=== PATIENT | female | born 1965 | race Caucasian/White ===

== ENCOUNTER 2017-11-15 13:48 | Emergency (ER) | payer MEDICAID ==
[2017-11-15 14:25] VITALS: BMI 33.3
[2017-11-15] MEDS ORDERED: Sodium Chloride 0.9% 1,000 ML IV STA (14:27)
[2017-11-15 14:47] VITALS: O2SAT 98
[2017-11-15 14:58] LABS: BASO # 0.01 K/mm3 (0.0-2.0); BASO % 0.1 % (0.0-3.0); EOS % 0.3 % (1.5-5.0); GRAN # 9.69 (1.4-6.5); GRAN % 81.5 % (50.0-68.0); HEMOGLOBIN 13.8 g/dL (12.0-16.0); LYMPH # 1.8 (1.2-3.4); LYMPH % 14.8 % (22.0-35.0); MEAN CELL VOLUME 83.7 fl (80.0-105.0); MEAN CORPUSCULAR HEMOGLOBIN 28.5 pg (25.0-35.0); MEAN CORPUSCULAR HGB CONC 34.1 g/dl (31.0-37.0); MEAN PLATELET VOLUME 9.5 fl (7.0-11.0); MONO # 0.4 (0.1-0.6); MONO % 3.3 % (1.0-6.0); RBC 4.84 10^6/uL (3.5-6.1); RED CELL DISTRIBUTION WIDTH 14.6 % (11.5-14.5); WHITE BLOOD COUNT 11.9 10^3/ul (4.5-11.0)
[2017-11-15 15:11] LABS: ALB/GLOB RATIO 1.3 (1.1-1.8); ALBUMIN 3.7 g/dL (3.0-4.8); ALT/SGPT 35 U/L (7-56); AMYLASE 56 U/L (35-125); AST/SGOT 30 U/L (14-36); BLOOD UREA NITROGEN 7 mg/dL (7-21); CALCIUM 9.1 mg/dL (8.4-10.5); GFR AFRICAN-AMERICAN > 60; GFR NON-AFRICAN AMERICAN > 60; LIPASE 90 U/L (23-300)
[2017-11-15 15:14] LABS: INR 1.01 (0.93-1.08); PROTHROMBIN TIME 11.5 SECONDS (9.4-12.5)
[2017-11-15 15:21] LABS: TROPONIN I < 0.01 ng/mL
[2017-11-15 16:03] VITALS: PULSE 74; RESP 18
[2017-11-15 16:35] LABS: URINE BILIRUBIN NEGATIVE (NEGATIVE); URINE BLOOD NEGATIVE (NEGATIVE); URINE GLUCOSE (UA) NEGATIVE (NEGATIVE); URINE LEUKOCYTE ESTERASE NEGATIVE Leu/uL (NEGATIVE); URINE PROTEIN TRACE mg/dL (<30 mg/dL); URINE UROBILINOGEN 0.2 E.U./dL (<1 E.U./dL)
[2017-11-15 16:39] LABS: URINE APPEARANCE CLEAR (CLEAR); URINE COLOR YELLOW (YELLOW)
--- NOTE | 2017-11-15 17:01 | US ---
HISTORY: epigastric pain COMPARISON: None. TECHNIQUE: Sonographic evaluation of the abdomen. FINDINGS: LIVER: Measures 17 cm. Diffuse increased echogenicity of the liver parenchyma. No mass. No intrahepatic bile duct dilatation. GALLBLADDER: Unremarkable. No gallstones. COMMON BILE DUCT: Measures 5 mm. No stones. No dilatation. PANCREAS: Unremarkable as visualized. No mass. No ductal dilatation. RIGHT KIDNEY: Measures 11.7 x 4.7 x 6.4cm. Normal echogenicity. No calculus, mass, or hydronephrosis. LEFT KIDNEY: Measures 11.5 x 5.6 x 6.1cm. Normal echogenicity. No calculus, mass, or hydronephrosis. SPLEEN: Normal in size and contour. No mass. AORTA: No aneurysmal dilatation. IVC: Unremarkable. OTHER FINDINGS: There is some ascitic fluid around the liver margin. IMPRESSION: Hepatomegaly with diffuse increased echogenicity compatible with fatty infiltration or other hepatic cellular disease pathology. No focal hepatic masses. No dilated ducts. Ascites present No gallbladder or pancreatic pathology seen
[2017-11-15 17:08] LABS: URINE BACTERIA FEW (NEG); URINE RBC NEGATIVE /hpf (0-2)
--- NOTE | 2017-11-15 17:14 | ED PDOC ---
Arrival/HPI - General Chief Complaint: Abdominal Pain Time Seen by Provider: 11/15/17 14:25 Historian: Patient - History of Present Illness Narrative History of Present Illness (Text): 11/15/17 17:25 52yo female with past medical history of hypertension who was bib EMS for 3days history of sharp worsening epigastric pain with associated nausea, vomiting and diarrhea. the son by the bedside states pain became worse today. She denies melena, hematemesis, hematochezia, fever, chills, urinary symptoms, chest pain, shortness of breath, sick contact, any other complaint. Past Medical History - Provider Review Nursing Documentation Reviewed: Yes - Travel History If Yes, travel location?: [place] - Infectious Disease Hx of Infectious Diseases: None - Cardiac Hx Hypertension: Yes (Noncompliant) - Pulmonary Hx Respiratory Disorders: No - Neurological Hx Neurological Disorder: No - HEENT Hx HEENT Disorder: No - Renal Hx Renal Disorder: No - Endocrine/Metabolic Hx Endocrine Disorders: No - Hematological/Oncological Hx Blood Disorders: No - Integumentary Hx Dermatological Disorder: No - Musculoskeletal/Rheumatological Hx Musculoskeletal Disorders: No - Gastrointestinal Hx Gastrointestinal Disorders: No - Genitourinary/Gynecological Hx Genitourinary Disorders: No - Psychiatric Hx Psychophysiologic Disorder: No Hx Substance Use: No - Anesthesia Hx Anesthesia: No Hx Anesthesia Reactions: No Hx Malignant Hyperthermia: No Family/Social History - Physician Review Nursing Documentation Reviewed: Yes Family/Social History: Unknown Family HX Smoking Status: Never Smoked Hx Alcohol Use: No Hx Substance Use: No Allergies/Home Meds Allergies/Adverse Reactions: Allergies No Known Allergies Allergy (Verified 06/15/15 19:43) Home Medications: Home Meds Medication Instructions Recorded Confirmed Ramipril [Altace] 10 mg PO DAILY 11/15/17 11/15/17 amLODIPine [Norvasc] 5 mg PO DAILY 11/15/17 11/15/17 Review of Systems - Physician Review All systems were reviewed & negative as marked: Yes - Review of Systems Constitutional: Normal Eyes: Normal ENT: Normal Respiratory: Normal Cardiovascular: Normal Gastrointestinal: Abdominal Pain, Diarrhea, Nausea, Vomiting. absent: Constipation, Hematochezia, Hematemesis Genitourinary Female: Normal Musculoskeletal: Normal Skin: Normal Neurological: Normal Endocrine: Normal Hemo/Lymphatic: Normal Psychiatric: Normal Physical Exam Vital Signs Reviewed: Yes Vital Signs Temp Pulse Resp BP Pulse Ox 11/15/17 17:49 98.9 F 74 18 142/72 98 11/15/17 16:00 74 18 138/65 98 11/15/17 14:46 99.4 F 79 17 142/67 98 Temperature: Afebrile Blood Pressure: Normal Pulse: Regular Respiratory Rate: Normal Appearance: Positive for: Well-Appearing, Non-Toxic, Comfortable Pain Distress: None Mental Status: Positive for: Alert and Oriented X 3 - Systems Exam Head: Present: Atraumatic, Normocephalic Pupils: Present: PERRL Extroacular Muscles: Present: EOMI Conjunctiva: Present: Normal Mouth: Present: Moist Mucous Membranes Neck: Present: Normal Range of Motion Respiratory/Chest: Present: Clear to Auscultation, Good Air Exchange. No: Respiratory Distress, Accessory Muscle Use Cardiovascular: Present: Regular Rate and Rhythm, Normal S1, S2. No: Murmurs Abdomen: Present: Tenderness (Epigastric tenderness), Normal Bowel Sounds, Other (Soft). No: Distention, Peritoneal Signs, Rebound, Guarding, McBurney's Point Tender, Rovsing's Sign Present Back: Present: Normal Inspection Upper Extremity: Present: Normal Inspection. No: Cyanosis, Edema Lower Extremity: Present: Normal Inspection. No: Edema Neurological: Present: GCS=15, CN II-XII Intact, Speech Normal Skin: Present: Warm, Dry, Normal Color. No: Rashes Psychiatric: Present: Alert, Oriented x 3, Normal Insight, Normal Concentration Medical Decision Making ED Course and Treatment: 11/16/17 01:04 PT presented for stated history. Her pain improved in Emergency department . Her lab was nonspecific. EKG NSR @76 Abdominal US IMPRESSION: Hepatomegaly with diffuse increased echogenicity compatible with fatty infiltration or other hepatic cellular disease pathology. No focal hepatic masses. No dilated ducts. Ascites present No gallbladder or pancreatic pathology seen Result was DW the pt. she was DC home with a rx of pepcid and Zofran. Referred to her PMD/GI - Lab Interpretations Lab Results: 11/15/17 14:45 11/15/17 14:45 Lab Results 11/15/17 16:15: Urine Color Yellow, Urine Appearance Clear, Urine pH 6.0, Ur Specific [place] 1.015, Urine Protein Trace H, Urine Glucose (UA) Negative, Urine Ketones Negative, Urine Blood Negative, Urine Nitrate Negative, Urine Bilirubin Negative, Urine Urobilinogen 0.2, Ur Leukocyte Esterase Negative, Urine RBC Negative, Urine WBC 2 - 5, Ur Epithelial Cells 1 - 3, Urine Bacteria Few 11/15/17 14:45: Sodium 139, Potassium 4.0, Chloride 106, Carbon Dioxide 22, Anion Gap 16, BUN 7, Creatinine 0.5 L, Est GFR ( Amer) > 60, Est GFR (Non -Af Amer) > 60, Random Glucose 142 H, Calcium 9.1, Total Bilirubin 0.3, AST 30, ALT 35, Alkaline Phosphatase 65, Lactate Dehydrogenase 527, Total Creatine Kinase 42, Troponin I < 0.01, Total Protein 6.6, Albumin 3.7, Globulin 2.9, Albumin/Globulin Ratio 1.3, Amylase 56, Lipase 90 11/15/17 14:45: PT 11.5, INR 1.01, APTT 22.0 L 11/15/17 14:45: WBC 11.9 H, RBC 4.84, Hgb 13.8, Hct 40.5, MCV 83.7, MCH 28.5, MCHC 34.1, RDW 14.6 H, Plt Count 387, MPV 9.5, Gran % 81.5 H, Lymph % (Auto) 14.8 L, Love % (Auto) 3.3, Eos % (Auto) 0.3 L, Baso % (Auto) 0.1, Gran # 9.69 H , Lymph # (Auto) 1.8, Love # (Auto) 0.4, Eos # (Auto) 0.0, Baso # (Auto) 0.01 - RAD Interpretation Radiology Orders: 11/15/17 16:14 ABDOMEN COMPLETE [US] Stat - Medication Orders Current Medication Orders: Discontinued Medications Famotidine (Pepcid) 20 mg IVP STAT STA Stop: 11/15/17 14:26 Last Admin: 11/15/17 14:58 Dose: 20 mg IVP Administration Document 11/15/17 14:58 HI (Rec: 11/15/17 14:58 [id number]) Charges for Administration # of IVP Administrations 1 Sodium Chloride (Sodium Chloride 0.9%) 1,000 mls @ 999 mls/hr IV .Q1H1M STA Stop: 11/15/17 15:27 Last Admin: 11/15/17 14:58 Dose: 999 mls/hr eMAR Start Stop Document 11/15/17 14:58 HI (Rec: 11/15/17 14:58 [place] [id number]) Intravenous Solution Start Date 11/15/17 Start Time 14:58 Ketorolac Tromethamine (Toradol) 30 mg IVP STAT STA Stop: 11/15/17 14:26 Last Admin: 11/15/17 14:58 Dose: 30 mg MAR Pain Assessment Document 11/15/17 14:58 HI (Rec: 11/15/17 14:58 [place] [id number]) Pain Reassessment Is this a pain reassessment? No Sleep Is patient sleeping during reassessment? No Presence of Pain Presence of Pain Yes IVP Administration Document 11/15/17 14:58 HI (Rec: 11/15/17 14:58 [place] [id number]) Charges for Administration # of IVP Administrations 1 Ondansetron HCl (Zofran Inj) 4 mg IVP STAT STA Stop: 11/15/17 14:26 Last Admin: 11/15/17 14:58 Dose: 4 mg IVP Administration Document 11/15/17 14:58 HI (Rec: 11/15/17 14:58 [place] [id number]) Charges for Administration # of IVP Administrations 1 Disposition/Present on Arrival - Present on Arrival Any Indicators Present on Arrival: No History of DVT/PE: No History of Uncontrolled Diabetes: No Urinary Catheter: No History of Decub. Ulcer: No History Surgical Site Infection Following: None - Disposition Have Diagnosis and Disposition been Completed?: Yes Diagnosis: Abdominal pain Disposition: HOME/ ROUTINE Disposition Time: 17:35 Patient Plan: Discharge Condition: STABLE Discharge Instructions (ExitCare): Acute Abdomen (Belly Pain), Adult (DC), Nausea and Vomiting, Adult (DC) Additional Instructions: Follow BRAT(Banana, plain rice, apple sauce, tea) diet for 24hours Follow up with your doctor/Market Investigator Return to Emergency department for any new or worsening symptoms Referrals: Tammie Eddy MD [Primary Care Provider] - Follow up with primary Jaya Gray MD [Staff Provider] - Follow up with primary Forms: [employer] ([place])
[2017-11-15 18:00] VITALS: BP 142/72; TEMP 98.9
--- NOTE | 2017-11-15 21:43 | CARD ---
APPROVED REPORT EKG Measurement Heart [id number] <Conclusion> Normal sinus rhythm Normal ECG
== END 2017-11-15 17:49 | disposition home or self-care (01) ==
LOC: ED 13:48
DX: R10.9 Unspecified abdominal pain (principal); I10 Essential (primary) hypertension; Z91.19 Patient's noncompliance with other medical treatment and regimen
CPT/HCPCS: 76700; 80053; 81001; 82150; 82550; 83615; 83690; 84484; 85025; 85610; 85730; 93005; 96374; 96375; 99284; J1885; J2405; J7030

== ENCOUNTER 2018-06-07 10:29 | Outpatient (CLI) | payer MEDICAID | END 2018-06-07 10:30 | disposition home or self-care (01) | LOC: RAD 10:30 ==

== ENCOUNTER 2018-06-18 10:17 | Outpatient (CLI) | payer MEDICAID | END 2018-06-18 10:18 | disposition home or self-care (01) | LOC: RAD 10:18 ==

== ENCOUNTER 2018-07-17 10:18 | Emergency (ER) | payer MEDICAID ==
[2018-07-17] MEDS ORDERED: Oxycodone/Acetaminophen 5/325 mg Tab PO STA (10:23)
[2018-07-17] MEDS ORDERED: Etomidate 20 mg/10ml Inj IV ONE (11:22)
--- NOTE | 2018-07-17 11:31 | RAD ---
Date of service: 07/17/2018 PROCEDURE: Radiographs of the Right Shoulder HISTORY: shoulder pain s/p trauma COMPARISON: No prior. FINDINGS: BONES: No acute fracture. JOINTS: Anterior glenohumeral dislocation. Humeral head situated anterior, medial and inferior to the glenoid. SOFT TISSUES: Normal. OTHER FINDINGS: None. IMPRESSION: Anterior glenohumeral dislocation. No definite fracture.
[2018-07-17 11:58] VITALS: RESP 20
--- NOTE | 2018-07-17 12:07 | ED PDOC ---
Arrival/HPI - General Chief Complaint: Upper Extremity Problem/Injury Time Seen by Provider: 07/17/18 10:19 Historian: Patient - History of Present Illness Narrative History of Present Illness (Text): 07/17/18 12:03 52yo female with pmhx of hypertension who was bib EMS for complaint of right shoulder/arm pain s/p trauma minutes [employer]. Patient states she fell while reaching for an object and landed on her right shoulder. Refused arm sling secondary to pain with movement. Denies hitting her head anywhere. Denies LOC, focal weakness, nausea, weakness, dizziness, any other complaint. Past Medical History - Provider Review Nursing Documentation Reviewed: Yes - Infectious Disease Hx of Infectious Diseases: None - Reproductive Menopause: No Currently : No - Cardiac Hx Hypertension: Yes (Noncompliant) - Pulmonary Hx Respiratory Disorders: No - Neurological Hx Neurological Disorder: No - HEENT Hx HEENT Disorder: No - Renal Hx Renal Disorder: No - Endocrine/Metabolic Hx Endocrine Disorders: No - Hematological/Oncological Hx Blood Disorders: No - Integumentary Hx Dermatological Disorder: No - Musculoskeletal/Rheumatological Hx Musculoskeletal Disorders: No - Gastrointestinal Hx Gastrointestinal Disorders: No - Genitourinary/Gynecological Hx Genitourinary Disorders: No - Psychiatric Hx Psychophysiologic Disorder: No Hx Substance Use: No - Anesthesia Hx Anesthesia: No Hx Anesthesia Reactions: No Hx Malignant Hyperthermia: No Family/Social History - Physician Review Nursing Documentation Reviewed: Yes Family/Social History: Unknown Family HX Smoking Status: Never Smoked Hx Alcohol Use: No Hx Substance Use: No Allergies/Home Meds Allergies/Adverse Reactions: Allergies No Known Allergies Allergy (Verified 06/15/15 19:43) Home Medications: Home Meds Medication Instructions Recorded Confirmed RX: Ramipril [Altace] 10 mg PO DAILY 11/15/17 11/15/17 amLODIPine [Norvasc] 5 mg PO DAILY 11/15/17 11/15/17 Review of Systems - Physician Review All systems were reviewed & negative as marked: Yes - Review of Systems Constitutional: Normal Eyes: Normal ENT: Normal Respiratory: Normal Cardiovascular: Normal Gastrointestinal: Normal Genitourinary Female: Normal Musculoskeletal: Arthralgias (Right shoulder/arm pain ) Skin: Normal Neurological: Normal Endocrine: Normal Hemo/Lymphatic: Normal Psychiatric: Normal Physical Exam Vital Signs Reviewed: Yes Vital Signs Temp Pulse Resp BP Pulse Ox 07/17/18 11:26 98 F 75 20 132/84 100 Temperature: Afebrile Blood Pressure: Normal Pulse: Regular Respiratory Rate: Normal Appearance: Positive for: Well-Appearing, Non-Toxic, Comfortable Pain Distress: None Mental Status: Positive for: Alert and Oriented X 3 - Systems Exam Head: Present: Atraumatic, Normocephalic Pupils: Present: PERRL Extroacular Muscles: Present: EOMI Conjunctiva: Present: Normal Mouth: Present: Moist Mucous Membranes Neck: Present: Normal Range of Motion Respiratory/Chest: Present: Clear to Auscultation, Good Air Exchange. No: Respiratory Distress, Accessory Muscle Use Cardiovascular: Present: Regular Rate and Rhythm, Normal S1, S2. No: Murmurs Abdomen: No: Tenderness, Distention, Peritoneal Signs Back: Present: Normal Inspection Upper Extremity: Present: NORMAL PULSES, Tenderness (Right shoulder/arm), Neurovascularly Intact, Capillary Refill < 2s, Deformity. No: Cyanosis, Edema, Normal ROM (Unable to evaluate secondary to pain), Swelling Lower Extremity: Present: Normal Inspection. No: Edema Neurological: Present: GCS=15, CN II-XII Intact, Speech Normal Skin: Present: Warm, Dry, Normal Color. No: Rashes Psychiatric: Present: Alert, Oriented x 3, Normal Insight, Normal Concentration Medical Decision Making ED Course and Treatment: 07/17/18 12:09 Pt bib EMS for right shoulder/arm pain s/p trauma. she was screaming in pain on presentation. She was seen as soon as she arrived in ED and pain medication was added. She was placed on arm sling. NVI. right shoulder/arm xray ordered Per the manometer technician patient only allowed him to do the shoulder xray and refused the other xray right shoulder xray JOINTS: Anterior glenohumeral dislocation. Humeral head situated anterior, medial and inferior to the glenoid. SOFT TISSUES: Normal. OTHER FINDINGS: None. IMPRESSION: Anterior glenohumeral dislocation. No definite fracture. Xray result was DW both pt and the sons by the bedside. She was advised that the dislocation will be reduced in ED under moderate sedation. She agreed and signed a consent.\ Patient was placed on a monitor and moderate sedation was done with 20mg of E tomidate. Shoulder was reduced by both i and Dr. Morel, without any complication. Arm was immobilized with shoulder immobilizer. Pt will be monitored in ED and noted to become AAO x3 in ED approximately 12minutes s/p the procedure. Post reduction xray 07/17/18 12:24 IMPRESSION: Successful reduction of shoulder dislocation. No evidence of fracture - RAD Interpretation Radiology Orders: 07/17/18 10:23 SHOULDER RIGHT [RAD] Stat 07/17/18 10:24 ELBOW RIGHT 3 VIEWS ROUTINE [RAD] Stat HUMERUS RIGHT [RAD] Stat 07/17/18 10:25 FOREARM RIGHT [RAD] Stat 07/17/18 10:26 WRIST, RIGHT 3 VIEWS [RAD] Stat 07/17/18 11:32 SHOULDER RIGHT [RAD] Stat - Medication Orders Current Medication Orders: Discontinued Medications Oxycodone/Acetaminophen (Percocet 5/325 Mg Tab) 1 tab PO STAT STA Stop: 07/17/18 10:24 Last Admin: 07/17/18 10:38 Dose: 1 tab MAR Pain Assessment Document 07/17/18 10:38 SRE (Rec: 07/17/18 10:39 SRE [id number]) Pain Reassessment Is this a pain reassessment? Yes Sleep Is patient sleeping during reassessment? No Pain Scale Used Protocol: PSCALES Pain Scale Used Numeric Location Left, Right or Bilateral Right Pain Location Body Site Elbow Description Description Constant Disposition/Present on Arrival - Present on Arrival Any Indicators Present on Arrival: No History of DVT/PE: No History of Uncontrolled Diabetes: No Urinary Catheter: No History of Decub. Ulcer: No History Surgical Site Infection Following: None - Disposition Have Diagnosis and Disposition been Completed?: Yes Diagnosis: Shoulder dislocation Disposition: HOME/ ROUTINE Disposition Time: 12:30 Patient Plan: Discharge Condition: STABLE Discharge Instructions (ExitCare): Shoulder Dislocation Additional Instructions: Follow up with your Doctor/Orthopedist Return to ED for any new symptoms Prescriptions: RX: traMADol [Ultram] 50 mg PO TID #8 tab Referrals: Chip Cooper MD [Staff Provider] - Follow up with primary Forms: [employer] ([place])
[2018-07-17] MEDS ORDERED: Etomidate 20 mg/10ml Inj IVP STA (12:16)
--- NOTE | 2018-07-17 12:17 | RAD ---
Date of service: 07/17/2018 PROCEDURE: Radiographs of the Right Shoulder HISTORY: shoulder dislocation COMPARISON: No prior. FINDINGS: BONES: Normal. No fracture. JOINTS: Successful reduction of dislocation SOFT TISSUES: Normal. OTHER FINDINGS: None. IMPRESSION: Successful reduction of shoulder dislocation. No evidence of fracture
[2018-07-17 12:20] VITALS: BMI 41.4
[2018-07-17 13:10] VITALS: BP 142/76; PULSE 62; TEMP 98.2; O2SAT 96
== END 2018-07-17 13:11 | disposition home or self-care (01) ==
LOC: ED 10:18
DX: S43.004A Unspecified dislocation of right shoulder joint, initial encounter (principal); W19.XXXA Unspecified fall, initial encounter